=== PATIENT | female | born 1950 | race Caucasian/White ===

== ENCOUNTER 2018-03-14 12:20 | Outpatient (CLI) | payer MEDICARE, BC | END 2018-03-14 12:21 | disposition home or self-care (01) | LOC: BICRAD 12:20 | PROVIDERS: ATTEND Internal Medicine | DX: R05 Cough (principal) | CPT/HCPCS: 71046 ==

== ENCOUNTER 2018-05-17 12:27 | Outpatient (CLI) | payer MEDICARE, BC ==
--- NOTE | 2018-05-17 14:02 | RAD ---
THREE VIEWS LEFT HAND: Date: 05-17-18 History: Left hand pain with pain predominately in the region of the first metacarpal as well as at t he distal radius. FINDINGS: There is mild scattered osteoarthritis involving the interphalangeal joints and to a lesser extent th e first carpal metacarpal joint. No obvious fracture is seen and there is no evidence of a dislocatio n. There is slight ulnar minor configuration. IMPRESSION: Mild osteoarthritis without evidence of an acute osseous abnormality. POS: [facility]
== END 2018-05-17 12:28 | disposition home or self-care (01) ==
LOC: BICRAD 12:27
PROVIDERS: ATTEND Internal Medicine
DX: M79.642 Pain in left hand (principal); Z91.81 History of falling; M19.042 Primary osteoarthritis, left hand

== ENCOUNTER 2018-08-14 16:00 | Outpatient (CLI) | payer MEDICARE, BC ==
--- NOTE | 2018-08-14 17:09 | RAD ---
LEFT HIP 2 VIEWS: Date: 08/14/18 HISTORY: Left hip pain. FINDINGS: Joint spaces are preserved. Minimal osteophytosis and subchondral sclerosis. Femoral head contour is maintained. No acute fracture, dislocation, or aggressive osseous erosions. IMPRESSION: Minimal osteoarthritic changes left hip. POS: [facility]
--- NOTE | 2018-08-14 17:17 | RAD ---
TWO VIEWS LUMBAR SPINE 08/14/18 HISTORY: Pain. AP and lateral views of the lumbar spine is obtained. Images demonstrate five nonribbearing lumbar vertebrae. Disc space height loss seen at L4-5. IMPRESSION: Changes of spondylosis and mild disc space height loss at L4-5, otherwise unremarkable two views lumb ar spine. POS: [facility]
--- NOTE | 2018-08-14 17:18 | RAD ---
AP VIEW PELVIS: Date: 08/14/18 HISTORY: Pain for 2 weeks. FINDINGS: AP view of pelvis obtained. The pelvis is unremarkable. No evidence of pelvic fractures, subluxations , or bony lesions seen. IMPRESSION: Unremarkable AP view pelvis. POS: [facility]
--- NOTE | 2018-08-14 17:19 | RAD ---
AP AND OBLIQUE VIEWS SI JOINTS: 08/14/18 HISTORY: Pain. AP and oblique views SI joints demonstrate no definite evidence of SI joint abnormalities, fractures or bony lesions. IMPRESSION: Unremarkable AP and oblique views SI joints. POS: [facility]
== END 2018-08-14 16:01 | disposition home or self-care (01) ==
LOC: BICRAD 16:00
PROVIDERS: ATTEND Internal Medicine
DX: M25.552 Pain in left hip (principal); M54.30 Sciatica, unspecified side; M19.90 Unspecified osteoarthritis, unspecified site; M43.06 Spondylolysis, lumbar region; M47.816 Spondylosis without myelopathy or radiculopathy, lumbar region; M16.12 Unilateral primary osteoarthritis, left hip
CPT/HCPCS: 72100; 72170; 72202

== ENCOUNTER 2018-10-01 11:23 | Outpatient (CLI) | payer MEDICARE, BC ==
--- NOTE | 2018-10-01 13:33 | RAD ---
CHEST 2 VIEWS: Date: 10/01/18 HISTORY: Cough. COMPARISON: Radiograph from 2004. FINDINGS: Lungs are clear. No pneumothorax or effusion. Cardiac silhouette and mediastinal contour within hill l limits. Lungs are hyperinflated. IMPRESSION: No acute intrathoracic abnormality. Mild lung hyperinflation. POS: [facility]
== END 2018-10-01 11:24 | disposition home or self-care (01) ==
LOC: BICRAD 11:23
PROVIDERS: ATTEND Internal Medicine
DX: R05 Cough (principal); R91.8 Other nonspecific abnormal finding of lung field
CPT/HCPCS: 71046

== ENCOUNTER 2022-07-17 17:08 | Emergency (ER) | payer MEDICARE, BC ==
[~2022-07-17 17:08] MED LIST: Iopamidol-370 76% 500 ML 1 ML ONE
[2022-07-17] MEDS ORDERED: Vancomycin 1 GM/200 ML (FROZEN) BAG ONE (17:33)
[2022-07-17 17:48] LABS: #Lymphocytes 1.1 thou/uL (1.20-3.40); #Monocytes 0.8 thou/uL (0.11-0.59); #Neutrophils 6.7 thou/uL (1.40-6.50); %Basophils 0.1 % (0.0-1.0); %Eosinophils 0.2 % (0.0-10.0); %Lymphocytes 13.3 % (21.0-51.0); %Monocytes 8.8 % (0.0-10.0); %Neutrophils 77.6 % (42.0-75.0); Hemoglobin 13.3 g/dL (12.0-16.0); Mean Corpuscular HGB CONC 33.9 g/dL (32.0-36.0); Mean Corpuscular Hemoglobin 31.1 pg (27.0-31.0); Mean Corpuscular Volume 91.8 fl (78.0-98.0); Platelet Count 236 10x3/uL (130-400); Red Blood Cell (RBC) Count 4.27 mill/uL (4.20-5.40); White Blood Cell (WBC) Count 8.6 10x3/uL (4.8-10.8)
[2022-07-17 18:01] LABS: Prothrombin Time 13.9 sec (12.0-14.7)
[2022-07-17 18:02] LABS: PTT 31.7 sec (22.9-36.1)
[2022-07-17 18:10] LABS: ALT (SGPT) 16 U/L (8-55); AST (SGOT) 28 U/L (5-34); Albumin 4.6 g/dL (3.4-4.8); Alkaline Phosphatase 68 U/L (40-110); Anion Gap 17 mmol/L (10-20); BUN (Urea Nitrogen) 19 mg/dL (9.8-20.1); Bilirubin, Total 0.7 mg/dL (0.2-1.2); Calc. Creatinine Clearance 0 mL/min (70-130); Calcium 10.2 mg/dL (7.8-10.44); Carbon Dioxide 23 mmol/L (23-31); Chloride 100 mmol/L (98-107); Estimated GFR 53; Glucose 148 mg/dL (83-110); Magnesium 1.4 mg/dL (1.6-2.6); Potassium 3.2 mmol/L (3.5-5.1); Protein, Total 7.6 g/dL (5.8-8.1); Sodium 137 mmol/L (136-145)
[2022-07-17] MEDS ORDERED: Potassium Chloride 20 MEQ TAB ONE ×2 (18:28→18:32)
[2022-07-17] MEDS ORDERED: Magnesium 2 GM/50 ML BAG (IN WATER) ONE (19:05)
[2022-07-17 20:08] LABS: SARS-CoV-2 NAA Rapid Test Not Detected (NotDetected)
== END 2022-07-17 20:40 | disposition home or self-care (01) ==
LOC: ERS 17:08
DX: R05.9 Cough, unspecified (principal); E87.6 Hypokalemia; E83.42 Hypomagnesemia; R00.0 Tachycardia, unspecified; E78.00 Pure hypercholesterolemia, unspecified; I10 Essential (primary) hypertension; Z20.822 Contact with and (suspected) exposure to COVID-19
CPT/HCPCS: 0240U; 71045; 71275; 83605; 83735; 84484; 85610; 85730; 87040; 93005; 94760; J3370; 36415; 80053; 84443; 85025; 96361; 96365; 96375; J3475; Q9967